=== PATIENT | female | born 1985 | race Two or more races ===

== ENCOUNTER 2020-08-15 16:07 | Emergency (ER) | payer BC ==
[~2020-08-15] VITALS: Ht 165.1 cm; Wt 70.0 kg
[2020-08-15 17:06] LABS: BASO # 0.1 x10^3/uL (0.0-0.2); BASO % 1 % (0-3); BILIRUBIN,URINE NEGATIVE (NEG); CLARITY,URINE CLEAR; COLOR,URINE YELLOW; EOS # 0.2 x10^3/uL (0.0-0.7); EOS % 2 % (0-3); HEMATOCRIT 41.4 % (36.0-47.0); LYMPH # 1.9 x10^3/uL (1.0-4.8); LYMPH % 25 % (24-48); MEAN CORPUSCULAR HEMOGLOBIN 32 pg (25-35); MEAN CORPUSCULAR HGB CONC 34 g/dL (31-37); MEAN CORPUSCULAR VOLUME 93 fL (79-100); MONO # 0.7 x10^3/uL (0.0-1.1); MONO % 10 % (0-9); NEUT # 4.8 x10^3/uL (1.8-7.7); NEUT % 63 % (31-73); NITRITE,URINE NEGATIVE (NEG); PH,URINE 5.5 (<5.0-8.0); PLATELET COUNT 237 x10^3/uL (140-400); PROTEIN,URINE NEGATIVE (NEG-TRACE); RED BLOOD COUNT 4.44 x10^6/uL (3.50-5.40); RED CELL DISTRIBUTION WIDTH 13.3 % (11.5-14.5); WHITE BLOOD COUNT 7.7 x10^3/uL (4.0-11.0)
[2020-08-15 17:19] LABS: CALCIUM 8.1 mg/dL (8.5-10.1); CREATININE 0.7 mg/dL (0.6-1.0); GFR 94.7
[2020-08-15 17:25] LABS: ALBUMIN 3.7 g/dL (3.4-5.0); TOTAL BILIRUBIN 0.3 mg/dL (0.2-1.0); TOTAL PROTEIN 7.5 g/dL (6.4-8.2)
[2020-08-15 17:33] LABS: WBC,URINE OCC /HPF (0-4)
[2020-08-15 17:34] LABS: BACTERIA,URINE FEW /HPF (0-FEW)
[2020-08-15 18:30] VITALS: BP 101/59
[2020-08-15] MEDS ORDERED: CONTRAST GIVEN. MC PRN (18:30)
[2020-08-15] MEDS ORDERED: IOHEXOL 300 MG/ML 100ML VIAL. IV ONE (18:30)
--- NOTE | 2020-08-15 18:41 | RAD ---
PQRS Compliance Statement: One or more of the following individualized dose reduction techniques were utilized for this examinat ion: 1. Automated exposure control 2. Adjustment of the mA and/or kV according to patient size 3. Use of iterative reconstruction technique CT abdomen/pelvis with contrast 08/15/2020 6:20 PM INDICATION: Abdominal pain. Nausea, vomiting and diarrhea for 4 days COMPARISON: None available TECHNIQUE: Multiple axial CT images of the abdomen and pelvis were obtained after the intravenous adm inistration of 75 mL Isovue-370. Coronal and sagittal reformats are provided. FINDINGS: Visualized portions of the lung bases are clear. Heart size is within normal limits. No suspicious hepatic masses are identified. Liver is homogeneous in enhancement. Spleen, bilateral a drenal glands, and pancreas are normal in appearance. Gallbladder is present without adjacent inflamm atory changes. Small and large bowel are normal in caliber. There is no evidence for bowel obstruction. There are no pericolonic inflammatory changes. A normal, nondilated appendix is visualized without adjacent infla mmatory changes. The abdominal aorta is normal in course and caliber. There are no pathologically enlarged lymph nodes in the abdomen and pelvis. There is no abdominal free fluid. There is no free intraperitoneal air. The kidneys enhance symmetrically. There is no suspicious renal mass. There is no hydronephrosis. The re are no suspected calculi within the kidneys, ureters or urinary bladder. Urinary bladder is within normal limits given degree of distention. Uterus is normal in appearance. Mild bilateral adnexal danny ices. Lesion 1 anterolisthesis of L5 on S1 with bilateral L5 pars defects which appear chronic. Schmo rl's nodes are identified at T11, T12 and L1 with minimal height loss at T11. IMPRESSION: 1. No bowel obstruction or inflammation. Appendix is normal in appearance. 2. Grade 1 anterolisthesis of L5 on S1 with chronic L5 burst defects. 3. Superior plate Schmorl's node is identified at T11 with minimal height loss. This is chronic. 4. Mild bilateral adnexal varices. Electronically signed by: Mendy Martinez MD (08/15/2020 6:39 PM) [facility]
[2020-08-15] MEDS ORDERED: ONDA4TAB12 PO (19:05)
--- NOTE | 2020-08-15 19:05 | ED.ADGEN ---
Past Medical History Past Medical History: No Pertinent History Past Surgical History: Other Additional Past Surgical Histo: TUBAL Smoking Status: Never Smoker Alcohol Use: Occasionally General Adult EDM: Chief Complaint: ABDOMINAL PAIN HPI: HPI: Patient is a 35 year old female who presents emergency department with complaints of nausea, vomiting, and diarrhea for the last 4 days. Patient reports that she was taking Pepto-Bismol for 2 days with no relief in her symptoms. She states this time her diarrhea has been black in color sometimes she denies any blood in her stools. Patient denies any shortness of breath, chest pain, palpitations, fever, cough, body aches, fatigue, sore throat, dysuria, hematuria, or increased urinary frequency. She reports that her last menstrual cycle began today. She complains of pain in the left side of her abdomen. She currently rates her pain a 8 out of 10 on the pain scale, she denies any alleviating or exacerbating factors and reports that the pain has been constant. Review of Systems: Review of Systems: Complete ROS is negative unless otherwise noted in HPI. Current Medications: Current Medications Medications (Trade) Dose Ordered Sig/Galina Start Time Stop Time Status Last Admin Dose Admin Info (CONTRAST GIVEN -- Rx MONITORING) 1 each PRN DAILY PRN 08/15/20 18:30 08/15/20 19:17 DC Iohexol (Omnipaque 300 Mg/ml) 75 ml 1X ONCE 08/15/20 18:30 08/15/20 18:31 DC Allergies: Allergies: Allergies Coded Allergies Type Severity Reaction Last Updated Verified No Known Drug Allergies 08/15/20 No Physical Exam: PE: See Above Constitutional: Well developed, well nourished, no acute distress, non-toxic ap pearance. [] HENT: Normocephalic, atraumatic, bilateral external ears normal, nose normal. [] Eyes: PERRLA, EOMI, conjunctiva normal, no discharge. [] Neck: Normal range of motion, no stridor. [] Cardiovascular:Heart rate regular rhythm Lungs & Thorax: Respirations even and unlabored, no retractions, no respiratory distress Abdomen: soft, left upper and left lower quadrant tenderness to palpation, no rebound tenderness, no guarding, no palpable mass, no pulsatile mass Skin: Warm, dry, no erythema, no rash. [] Extremities: No cyanosis, ROM intact, no edema. [] Neurologic: Alert and oriented X 3, no focal deficits noted. [] Psychologic: Affect normal, judgement normal, mood normal. [] Current Patient Data: Labs: Laboratory Tests Test 08/15/20 16:53 08/15/20 16:57 White Blood Count 7.7 x10^3/uL (4.0-11.0) Red Blood Count 4.44 x10^6/uL (3.50-5.40) Hemoglobin 14.0 g/dL (12.0-15.5) Hematocrit 41.4 % (36.0-47.0) Mean Corpuscular Volume 93 fL (79-100) Mean Corpuscular Hemoglobin 32 pg (25-35) Mean Corpuscular Hemoglobin Concent 34 g/dL (31-37) Red Cell Distribution Width 13.3 % (11.5-14.5) Platelet Count 237 x10^3/uL (140-400) Neutrophils (%) (Auto) 63 % (31-73) Lymphocytes (%) (Auto) 25 % (24-48) Monocytes (%) (Auto) 10 % (0-9) H Eosinophils (%) (Auto) 2 % (0-3) Basophils (%) (Auto) 1 % (0-3) Neutrophils # (Auto) 4.8 x10^3/uL (1.8-7.7) Lymphocytes # (Auto) 1.9 x10^3/uL (1.0-4.8) Monocytes # (Auto) 0.7 x10^3/uL (0.0-1.1) Eosinophils # (Auto) 0.2 x10^3/uL (0.0-0.7) Basophils # (Auto) 0.1 x10^3/uL (0.0-0.2) Urine Collection Type Unknown Urine Color Yellow Urine Clarity Clear Urine pH 5.5 (<5.0-8.0) Urine Specific [place] 1.020 (1.000-1.030) Urine Protein Negative mg/dL (NEG-TRACE) Urine Glucose (UA) Negative mg/dL (NEG) Urine Ketones (Stick) Negative mg/dL (NEG) Urine Blood Small (NEG) Urine Nitrite Negative (NEG) Urine Bilirubin Negative (NEG) Urine Urobilinogen Dipstick 1.0 mg/dL (0.2 mg/dL) Urine Leukocyte Esterase Negative (NEG) Urine RBC 1-2 /HPF (0-2) Urine WBC Occ /HPF (0-4) Urine Squamous Epithelial Cells Few /LPF Urine Bacteria Few /HPF (0-FEW) Urine Mucus Slight /LPF Sodium Level 138 mmol/L (136-145) Potassium Level 4.0 mmol/L (3.5-5.1) Chloride Level 103 mmol/L (98-107) Carbon Dioxide Level 25 mmol/L (21-32) Anion Gap 10 (6-14) Blood Urea Nitrogen 8 mg/dL (7-20) Creatinine 0.7 mg/dL (0.6-1.0) Estimated GFR (Cockcroft-Gault) 94.7 BUN/Creatinine Ratio 11 (6-20) Glucose Level 83 mg/dL (70-99) Calcium Level 8.1 mg/dL (8.5-10.1) L Magnesium Level 2.0 mg/dL (1.8-2.4) Total Bilirubin 0.3 mg/dL (0.2-1.0) Aspartate Amino Transferase (AST) 17 U/L (15-37) Alanine Aminotransferase (ALT) 24 U/L (14-59) Alkaline Phosphatase 43 U/L (46-116) L Total Protein 7.5 g/dL (6.4-8.2) Albumin 3.7 g/dL (3.4-5.0) Albumin/Globulin Ratio 1.0 (1.0-1.7) Lipase 88 U/L (73-393) POC Urine HCG, Qualitative Hcg negative (Negative) Laboratory Tests 08/15/20 16:53 Laboratory Tests 08/15/20 16:53 Vital Signs: Vital Signs Date Time Temp Pulse Resp B/P (MAP) Pulse Ox O2 Delivery O2 Flow Rate FiO2 08/15/20 18:30 86 101/59 (73) 100 Room Air 08/15/20 16:33 97.6 12 97.6 EKG: EKG: [] Heart Score: C/O Chest Pain: No Risk Factors: Risk Factors: DM, Current or recent (<one month) smoker, HTN, HLP, family history of CAD, obesity. Risk Scores: Score 0 - 3: 2.5% MACE over next 6 weeks - Discharge Home Score 4 - 6: 20.3% MACE over next 6 weeks - Admit for Clinical Observation Score 7 - 10: 72.7% MACE over next 6 weeks - Early Invasive Strategies Radiology/Procedures: Radiology/Procedures: PROCEDURE: CT ABD PELV W/ IV CONTRST ONLY PQRS Compliance Statement: One or more of the following individualized dose reduction techniques were utilized for this examination: 1. Automated exposure control 2. Adjustment of the mA and/or kV according to patient size 3. Use of iterative reconstruction technique CT abdomen/pelvis with contrast 08/15/2020 6:20 PM INDICATION: Abdominal pain. Nausea, vomiting and diarrhea for 4 days COMPARISON: None available TECHNIQUE: Multiple axial CT images of the abdomen and pelvis were obtained after the intravenous administration of 75 mL Isovue-370. Coronal and sagittal reformats are provided. FINDINGS: Visualized portions of the lung bases are clear. Heart size is within normal limits. No suspicious hepatic masses are identified. Liver is homogeneous in enhancement. Spleen, bilateral adrenal glands, and pancreas are normal in appearance. Gallbladder is present without adjacent inflammatory changes. Small and large bowel are normal in caliber. There is no evidence for bowel obstruction. There are no pericolonic inflammatory changes. A normal, nondilated appendix is visualized without adjacent inflammatory changes. The abdominal aorta is normal in course and caliber. There are no pathologically enlarged lymph nodes in the abdomen and pelvis. There is no abdominal free fluid. There is no free intraperitoneal air. The kidneys enhance symmetrically. There is no suspicious renal mass. There is no hydronephrosis. There are no suspected calculi within the kidneys, ureters or urinary bladder. Urinary bladder is within normal limits given degree of distention. Uterus is normal in appearance. Mild bilateral adnexal varices. Lesion 1 anterolisthesis of L5 on S1 with bilateral L5 pars defects which appear chronic. Schmorl's nodes are identified at T11, T12 and L1 with minimal height loss at T11. IMPRESSION: 1. No bowel obstruction or inflammation. Appendix is normal in appearance. 2. Grade 1 anterolisthesis of L5 on S1 with chronic L5 burst defects. 3. Superior plate Schmorl's node is identified at T11 with minimal height loss. This is chronic. 4. Mild bilateral adnexal varices. Electronically signed by: Mendy Martinez MD (08/15/2020 6:39 PM) [facility] [] Course & Med Decision Making: Course & Med Decision Making Pertinent Labs and Imaging studies reviewed. (See chart for details) 35-year-old female presented emergency department with complaints of nausea, vomiting, and diarrhea for 4 days. Work-up included labs, and a CT abdomen pelvis with contrast. Patient denied any nausea and refused pain medications offered in the emergency department. CBC was unremarkable; CMP revealed a calcium of 8.1 otherwise unremarkable; lipase was not elevated; urine test is negative, UA is unremarkable. CT of the abdomen and pelvis revealed no bowel obstruction or inflammation, the appendix was also normal-appearing. There were no acute findings. Patient's vital signs are stable throughout emergency department stay, she reported feeling better. A prescription was written for Zofran to take as needed for nausea. I encouraged the patient to follow a clear liquid diet for 24 hours then advance to bland foods such as bananas, rice, applesauce, and dry toast. The patient was instructed to follow-up with a primary care doctor next week for reevaluation. Patient verbalized an understanding of home care, medications, follow-up, and return to ED instructions and was in agreement with the plan of care. [] Dragon Disclaimer: Dragon Disclaimer: This electronic medical record was generated, in whole or in part, using a voice recognition dictation system. Departure Departure Impression: Primary Impression: Nausea, vomiting, and diarrhea Disposition: 01 DC HOME SELF CARE/HOMELESS Condition: STABLE Referrals: NO PCP (PCP) Patient Instructions: Diarrhea, [id number], Diet for Diarrhea, Adult, Nausea and Vomiting, [id number] Additional Instructions: Fill prescriptions and use them as directed. Recommend clear fluids for the next 24 hours. Then you may advance to bland foods such as bananas, rice, applesauce, and dry toast. Follow-up with your primary care doctor in the next 1-2 days. Return to the emergency room if your symptoms worsen or if fever develops. Scripts Ondansetron (ONDANSETRON ODT) 4 Mg Tab.rapdis 1 TAB PO PRN Q6-8HRS PRN for NAUSEA/VOMITING for 5 Days, #20 TAB 0 Refills Prov: BASSEM PANDEY APRN 08/15/20 BASSEM PANDEY [employer] Aug 15, 2020 19:05
[2020-08-15] MEDS ORDERED: IV NORMAL SALINE 1000ML BAG 1,000 ML IV ONE (21:00)
== END 2020-08-15 19:05 | disposition home or self-care (01) ==
LOC: ER 16:07
DX: R11.2 Nausea with vomiting, unspecified (principal); R19.7 Diarrhea, unspecified; R10.12 Left upper quadrant pain; R10.32 Left lower quadrant pain
CPT/HCPCS: 36415; 74177; 80053; 81001; 81025; 83690; 83735; 85025; 99285-25